=== PATIENT | male | born 1980 | race Two or more races ===

== ENCOUNTER 2017-06-14 21:08 | Emergency (ER) | payer SELFPAY ==
[~2017-06-14] VITALS: Ht 180.3 cm; Wt 98.0 kg
[2017-06-14] MEDS ORDERED: NKM (21:23)
[2017-06-14] MEDS ORDERED: Norco 5mg/325mg tab PO ONE (21:45)
[2017-06-14] MEDS ORDERED: NORCO 5-325 TA1 EACH ORAL (22:30)
[2017-06-14] MEDS ORDERED: IBUPROFEN600 MG ORAL (22:30)
[2017-06-14 22:55] VITALS: BP 134/87
--- NOTE | 2017-06-15 02:38 | Emergency Room Report ---
History of Present Illness General Chief Complaint: Lower Extremity Injury Source: Patient Present Illness HPI 37-year-old male presents ED for evaluation. Patient left elbow pain and swelling. States he fell earlier today area and landed on his left arm. Denies hitting his head or LOC. Complaining of pain and swelling to the left elbow. Throbbing, 8 out of 10, nonradiating. No other aggravating relieving factors. Denies any other associated symptoms Allergies: Coded Allergies: No Known Allergies (Unverified , 06/14/17) Patient History Past Medical History: none Past Surgical History: none Pertinent Family History: none Social History: Denies: smoking, alcohol use, drug use Immunizations: UTD Reviewed Nursing Documentation: PMH: Agreed; PSxH: Agreed Nursing Documentation-PMH Past Medical History: No Stated History Review of Systems All Other Systems: negative except mentioned in HPI Physical Exam Vital Signs Date Time Temp Pulse Resp B/P (MAP) Pulse Ox O2 Delivery O2 Flow Rate FiO2 06/14/17 21:13 98.2 84 16 134/87 95 Room Air 98.2 Sp02 EP Interpretation: reviewed, normal General Appearance: no apparent distress, alert, GCS 15, non-toxic Head: normocephalic, atraumatic Eyes: bilateral eye normal inspection, bilateral eye PERRL ENT: hearing grossly normal, normal pharynx, no angioedema, normal voice Neck: full range of motion, supple/symm/no masses Respiratory: chest non-tender, lungs clear, normal breath sounds, speaking full sentences Cardiovascular #1: regular rate, rhythm, no edema Cardiovascular #2: 2+ carotid (R), 2+ carotid (L), 2+ radial (R), 2+ radial (L) , 2+ dorsalis pedis (R), 2+ dorsalis pedis (L) Gastrointestinal: normal bowel sounds, non tender, soft, non-distended, no guarding, no rebound Rectal: deferred Genitourinary: normal inspection, no CVA tenderness Musculoskeletal: back normal, gait/station normal, decreased range of motion, swelling - L elbow Neurologic: alert, oriented x3, responsive, motor strength/tone normal, sensory intact, speech normal Psychiatric: judgement/insight normal, memory normal, mood/affect normal, no suicidal/homicidal ideation Reflexes: 3+ bicep (R), 3+ bicep (L), 3+ tricep (R), 3+ tricep (L), 3+ knee (R) , 3+ knee (L) Skin: normal color, no rash, warm/dry, well hydrated Lymphatic: no adenopathy Procedures Splinting Splinting : Consent: Verbal Hand-Made Type: plaster Splint: poserior short Pre-Proc Neuro Vasc Exam: normal Post-Proc Neuro Vasc Exam: normal Patient Tolerated: Well Complications: None Medical Decision Making Diagnostic Impression: Primary Impression: Elbow fracture Qualified Codes: S42.402A - Unspecified fracture of lower end of left humerus , initial encounter for closed fracture ER Course Hospital Course 37-year-old M presents to ED complaining of L elbow pain s/p fall Differential diagnoses include: Fracture, dislocation, sprain, contusion Clinical course Patient placed on stretcher. After initial history and physical, I ordered pain medications and Xrays of L elbow Xrays show significant anterior fat pad concerning for fracture. Given that L swelling and limited range of motion we'll treat. Placed in splint, and given sling Diagnosis - elbow fx Stable and discharged to home with prescription for Motrin, [place]. apply ice, keep elevated. Followup with PMD/ortho. Return to ED if symptoms recur or worsen Other X-Ray Diagnostic Results Other X-Ray Diagnostic Results : X-Ray ordered: L elbow # of Views/Limited Vs Complete: 3 View Indication: Pain EP Interpretation: Yes Interpretation: no dislocation, other - significant anterior fat pad Impression: Other - Questionable fracture Electronically Signed by: Electronically signed by Sanchez Gomez MD Last Vital Signs Date Time Temp Pulse Resp B/P (MAP) Pulse Ox O2 Delivery O2 Flow Rate FiO2 06/14/17 22:55 98.2 16 134/87 95 Room Air 208.8 06/14/17 21:13 84 Status: improved Disposition: HOME, SELF-CARE Condition: Stable Scripts Hydrocodone Bit/Acetaminophen 5-325* (NORCO 5-325*) 1 Each Tablet 1 TAB ORAL Q6H PRN for For Pain, #10 TAB 0 Refills Prov: Sanchez Gomez MD 06/14/17 Ibuprofen* (MOTRIN*) 600 Mg Tablet 600 MG ORAL Q8H PRN for For Pain, #30 TAB 0 Refills Prov: Sanchez Gomez MD 06/14/17 Patient Instructions: Elbow Fracture, Simple Sanchez Gomez MD June 15, 2017 02:38
--- NOTE | 2017-06-15 12:04 | Diagnostic Imaging Report ---
Indication: Pain Technique: XRAY Elbow Min 3v L Comparison: None Findings: There is a minimally displaced fracture of the radial head. Elbow joint alignment maintained. There is abnormal elevation of the anterior fat pad compatible with joint effusion. No radiopaque foreign body seen. Impression: Abnormal elbow joint effusion with subtle, minimally displaced fracture of the radial head. This corresponds with the preliminary interpretation of the treating ER clinician, as documented in the electronic medical record, with slight variance. Findings of final report discussed with Dr. Noonan in the ER 06/15/2017.
== END 2017-06-14 22:56 | disposition home or self-care (01) ==
LOC: EMR 21:40
DX: S52.122A Displaced fracture of head of left radius, initial encounter for closed fracture (principal); W19.XXXA Unspecified fall, initial encounter; Y92.9 Unspecified place or not applicable
CPT/HCPCS: 29125; 99284